=== PATIENT | female | born 1990 | race Native Hawaiian/Other Pacific Islander ===

== ENCOUNTER 2019-06-16 19:39 | Emergency (ER) | payer OTHER ==
[~2019-06-16] VITALS: Ht 165.1 cm; Wt 102.1 kg
[2019-06-16 20:37] LABS: PLATELET COUNT 213 K/uL (152-353)
[2019-06-16 21:30] LABS: POTASSIUM 3.9 mmol/L (3.6-5.2)
[2019-06-16 23:21] VITALS: BP 133/71; TEMP 98.2
== END 2019-06-16 23:21 | disposition home or self-care (01) ==
LOC: ED 19:39
PROVIDERS: Emergency Medicine
DX: J01.90 Acute sinusitis, unspecified (principal); F17.210 Nicotine dependence, cigarettes, uncomplicated
CPT/HCPCS: 36415; 80053; 81000; 81025; 85027; 87502; 87651; 96360; 99284